=== PATIENT | male | born 1940 | race Caucasian/White ===

== ENCOUNTER 2024-10-03 10:21 | Day surgery (SDC) | payer MEDICARE, BC, SELFPAY ==
--- NOTE | 2024-10-02 00:01 | EKG_ITS ---
[facility] Test Date: 2024-10-02 Pat Name: ANAND GRAFF Department: Room: - Gender: Male [employer]: STUDENT : 1940 Requested By: Michelle Samaniego Order Number: [id number] Reading MD: Michelle Samaniego Measurements Intervals [place] Rate: 66 P: 9 DE: 179 QRS: -5 QRSD: 109 T: 9 QT: 382 QTc: 403 Interpretive Statements SINUS RHYTHM Compared to ECG 12/18/2021 09:07:46 Sinus bradycardia no longer present T-wave abnormality no longer present Possible ischemia no longer present /store/S0/[id number]/ecg/[id number].pdf
[2024-10-02 10:40] LABS: Basophils % (Auto) 0 % (0-2.5); Eosinophils # (Auto) 0.1 Thou/mm3 (0.0-0.5); Eosinophils % (Auto) 1 % (0-10); Hematocrit 40.1 % (41.0-53.0); Hemoglobin 13.1 g/dL (13.5-16.0); Immature Granulocytes % (Auto) 0 % (0-0); Immature Granulocytes Auto 0.02 Thou/mm3 (0.00-0.00); Lymphocytes # (Auto) 2.5 Thou/mm3 (1.0-4.8); Lymphocytes % (Auto) 26 % (10-50); Mean Corpuscular HGB Conc 32.7 g/dl (31.0-37.0); Mean Corpuscular Hemoglobin 30.5 pg (25.0-35.0); Mean Corpuscular Volume 93 fL (80-100); Monocytes # (Auto) 0.9 Thou/mm3 (0.0-0.8); Monocytes % (Auto) 9 % (0-12); Neutrophils # (Auto) 6.2 Thou/mm3 (1.8-7.7); Neutrophils % (Auto) 63 % (37-80); Nucleated Red Blood Cell % 0 /100 WBC (0); Platelet Count 209 Thou/mm3 (140-440); RDW Standard Deviation 48.2 fL (35.1-43.9); White Blood Count 9.9 Thou/mm3 (3.8-10.6)
[2024-10-02 10:55] LABS: Anion Gap 6 (7-16); BUN/Creatinine Ratio 16 Ratio (12-20); Blood Urea Nitrogen 18 mg/dL (9-23); Carbon Dioxide 29.7 mMol/L (20.0-31.0); Chloride 103 mMol/L (98-107); Creatinine (Component) 1.1 mg/dL (0.6-1.3); Glucose 96 mg/dL (74-106); Osmolality,Calculated 279 (275-295); Potassium 4.6 mMol/L (3.4-5.1); Sodium 139 mMol/L (136-145); eGFR > 60 See Note
[2024-10-02 11:19] LABS: Partial Thromboplastin Time 29.7 Seconds (22.0-36.0); Prothrombin Time 11.4 Seconds (9.0-12.2)
[2024-10-02 16:15] VITALS: BMI 27.2
[2024-10-03] VITALS (10 sets, daily range): BP systolic 112–159; BP diastolic 56–82; PULSE 60–77; RESP 9–16; TEMP 36.4–36.6; O2SAT 97–99; BMI 29.2
--- NOTE | 2024-10-03 13:42 | PC.NURSE ---
1303 patient awake, alert, breathing unlabored, s/p LHC , TR band to right wrist, no bleeding or hematoma noted, report received from Mami WATTS. 1330 2ml air removed from TR band, no bleeding or hematoma noted. 1343 Report given to Mami WATTS
--- NOTE | 2024-10-03 15:00 | ESOP_ITS ---
RE: AASHISH CALDERON : 1940 DATE OF OPERATION: 10/03/2024 PROCEDURE PERFORMED: 1. Diagnostic left heart cardiac catheterization, selective coronary angiogram, left ventricular angiogram, CPT code 12102. 2. Conscious sedation for 30-minute duration. 3. Ultrasound guided access of the right radial artery. DIAGNOSES: Coronary artery disease, abnormal stress test, previous stent placed. HISTORY AND INDICATIONS: Mr. Aashish Calderon is an 84-year-old male with known CAD, stent placement of the circumflex artery about 20 years ago. He has recurrent shortness of breath and chest pressure. Cardiac stress test and nuclear scan was abnormal. Coronary angiogram was recommended. The patient is a candidate for intervention of PCI. DESCRIPTION OF PROCEDURE: The patient brought to cardiac catheterization laboratory. He was given 2 mg of Versed and 50 mcg of fentanyl for conscious sedation. Using ultrasound guidance, right radial artery was cannulated via micropuncture technique and a 6-[place] Glidesheath was introduced. Radial cocktail was given. Selective right and left heart catheterization, LV angiogram performed by a 5-Mac[place] TIG-4 diagnostic catheter. FR4 diagnostic catheter was performed for right coronary angiogram. The patient tolerated the procedure with no complications. Cardiac catheterization showed following findings HEMODYNAMICS: Left ventricular pressure 136/6. Aortic pressure 136/78. No gradient across the aortic valve. Left ventricular angiogram showed normal left ventricular wall motion. Ejection fraction 65%. Coronary angiogram showed following findings: The right coronary artery is large and codominant, appears normal. Left coronary system: Left main coronary artery is normal. Left anterior descending artery appears normal. Left circumflex artery showed a stent in the mid segment widely patent, gives off PL branches and co-dominant. SUMMARY OF FINDINGS AND SUGGESTIONS: 1. Widely patent stent in mid left circumflex artery. 2. Normal nonobstructive LAD and septal right coronary arteries, nonobstructive epicardial coronary artery . 3. Normal left ventricular function. RECOMMENDATIONS: The patient was reassured of the absence of significant obstructive coronary artery disease, widely patent stent and prognosis is excellent. Recommended to continue maximum medical management. DT: 13:31:30 TT: 14:55:00 Ref: [id number] - TID: [id number] [facility]
== END 2024-10-03 15:30 | disposition home or self-care (01) ==
PROVIDERS: PCP Family Medicine; Referring Provider Internal Medicine Cardiovascular Disease; Visit Provider Internal Medicine Cardiovascular Disease
PROC: (CPT 93458; principal; 2024-10-03 12:30)
DX: I25.118 Atherosclerotic heart disease of native coronary artery with other forms of angina pectoris (principal); Z95.5 Presence of coronary angioplasty implant and graft; I10 Essential (primary) hypertension; E78.00 Pure hypercholesterolemia, unspecified; E78.2 Mixed hyperlipidemia; Z01.810 Encounter for preprocedural cardiovascular examination
CPT/HCPCS: 93458; 36415; 80048; 85025; 85610; 85730; 93005; 99152; A4649; C1887; C1894; J0171; J0461; J1643; J2250; J2310; J2371; J3010; J3490; Q9967; A9270; J1644; J2305

== ENCOUNTER → 2025-01-16 | Outpatient (CLI) | payer MEDICARE, BC, SELFPAY ==
--- NOTE | 2025-01-16 | XR_ITS ---
Examination: Shoulder,left, 3 views Technique: Shoulder AP internal rotation, AP external rotation, Y view shoulder, 3 views Exam date and time :January 16, 2025 1248 hours INDICATIONS: Left shoulder pain beginning 2 months ago. FINDINGS: Moderate to advanced osteoarthritis glenohumeral joint No fracture or shoulder dislocation Moderate calcific tendinitis IMPRESSION: Moderate to advanced osteoarthritis glenohumeral joint Moderate calcific tendinitis
[2025-01-16 14:24] LABS: Basophils % (Auto) 0 % (0-2.5); Eosinophils # (Auto) 0.2 Thou/mm3 (0.0-0.5); Eosinophils % (Auto) 3 % (0-10); Hematocrit 40.8 % (41.0-53.0); Hemoglobin 13.7 g/dL (13.5-16.0); Immature Granulocytes % (Auto) 0 % (0-0); Immature Granulocytes Auto 0.01 Thou/mm3 (0.00-0.00); Lymphocytes % (Auto) 38 % (10-50); Mean Corpuscular HGB Conc 33.6 g/dl (31.0-37.0); Mean Corpuscular Hemoglobin 30.2 pg (25.0-35.0); Mean Corpuscular Volume 90 fL (80-100); Monocytes # (Auto) 0.7 Thou/mm3 (0.0-0.8); Monocytes % (Auto) 9 % (0-12); Neutrophils # (Auto) 3.9 Thou/mm3 (1.8-7.7); Neutrophils % (Auto) 50 % (37-80); Nucleated Red Blood Cell % 0 /100 WBC (0); Platelet Count 249 Thou/mm3 (140-440); RDW Standard Deviation 44.1 fL (35.1-43.9); Red Blood Count 4.54 Miln/mm3 (4.50-5.90); White Blood Count 7.8 Thou/mm3 (3.8-10.6)
[2025-01-16 14:38] LABS: Alanine Aminotransferase 13 U/L (10-49); Albumin, Serum 4.3 gm/dL (3.4-4.8); Albumin/Globulin Ratio 1.7 (1.2-2.2); Alkaline Phosphatase 93 U/L (46-116); Anion Gap 8 (7-16); Aspartate Amino Transferase 22 U/L (0-34); BUN/Creatinine Ratio 18 Ratio (12-20); Bilirubin,Total 0.9 mg/dL (0.3-1.2); Blood Urea Nitrogen 22 mg/dL (9-23); Calcium 9.9 mg/dL (8.3-10.6); Calcium (Corrected) 9.9 mg/dL (8.5-10.1); Carbon Dioxide 28.1 mMol/L (20.0-31.0); Chloride 104 mMol/L (98-107); Cholesterol 139 mg/dL (132-200); Creatinine (Component) 1.2 mg/dL (0.6-1.3); Globulin 2.6 gm/dL (2.3-3.5); Glucose 100 mg/dL (74-106); HDL Cholesterol 47 mg/dL (40-60); LDL Cholesterol,Calculated 75 mg/dL (0-130); Osmolality,Calculated 282 (275-295); Potassium 4.2 mMol/L (3.4-5.1); Sodium 140 mMol/L (136-145); Total Protein 6.9 gm/dL (5.7-8.2); Triglycerides 85 mg/dL (30-150); eGFR > 60 See Note
== END | disposition home or self-care (01) ==
LOC: CDIM 11:35 → COPL 13:00
PROVIDERS: PCP Family Medicine; Referring Provider Family Medicine; Visit Provider Family Medicine
DX: M19.012 Primary osteoarthritis, left shoulder (principal); M75.32 Calcific tendinitis of left shoulder; I10 Essential (primary) hypertension; N39.490 Overflow incontinence; K21.9 Gastro-esophageal reflux disease without esophagitis; R79.9 Abnormal finding of blood chemistry, unspecified
CPT/HCPCS: 36415; 73030; 80053; 80061; 85025

== ENCOUNTER → 2025-01-17 | Outpatient (CLI) | payer MEDICARE, BC, SELFPAY ==
[2025-01-21 07:06] LABS: Fecal Globin Result NOT DETECTED (NOT DETECTED)
== END | disposition home or self-care (01) ==
LOC: SLDO 12:02
PROVIDERS: PCP Family Medicine; Referring Provider Family Medicine; Visit Provider Family Medicine
DX: Z12.11 Encounter for screening for malignant neoplasm of colon (principal); R79.9 Abnormal finding of blood chemistry, unspecified; K21.9 Gastro-esophageal reflux disease without esophagitis; N39.490 Overflow incontinence; I10 Essential (primary) hypertension
CPT/HCPCS: 82274; G0328

== ENCOUNTER → 2025-08-01 | Outpatient (CLI) | payer MEDICARE, BC, SELFPAY ==
[2025-08-01 17:21] LABS: Basophils # (Auto) 0.0 Thou/mm3 (0.0-0.2); Basophils % (Auto) 1 % (0-2.5); Eosinophils # (Auto) 0.1 Thou/mm3 (0.0-0.5); Eosinophils % (Auto) 2 % (0-10); Hematocrit 40.7 % (41.0-53.0); Hemoglobin 13.1 g/dL (13.5-16.0); Immature Granulocytes Auto 0.02 Thou/mm3 (0.00-0.00); Lymphocytes # (Auto) 2.7 Thou/mm3 (1.0-4.8); Lymphocytes % (Auto) 33 % (10-50); Mean Corpuscular HGB Conc 32.2 g/dl (31.0-37.0); Mean Corpuscular Hemoglobin 30.8 pg (25.0-35.0); Mean Corpuscular Volume 96 fL (80-100); Monocytes # (Auto) 0.6 Thou/mm3 (0.0-0.8); Monocytes % (Auto) 7 % (0-12); Neutrophils # (Auto) 4.7 Thou/mm3 (1.8-7.7); Neutrophils % (Auto) 57 % (37-80); Nucleated Red Blood Cell # 0.00 Thou/mm3 (0.00-0.00); Nucleated Red Blood Cell % 0 /100 WBC (0); Platelet Count 219 Thou/mm3 (140-440); RDW Standard Deviation 49.4 fL (35.1-43.9); Red Blood Count 4.25 Miln/mm3 (4.50-5.90); White Blood Count 8.2 Thou/mm3 (3.8-10.6)
[2025-08-01 17:33] LABS: Prostate Specific Antigen 1.43 ng/mL (0-4.00)
[2025-08-01 17:36] LABS: Alanine Aminotransferase 16 U/L (10-49); Albumin, Serum 4.2 gm/dL (3.4-4.8); Albumin/Globulin Ratio 1.8 (1.2-2.2); Alkaline Phosphatase 81 U/L (46-116); Anion Gap 10 (7-16); Aspartate Amino Transferase 15 U/L (0-34); BUN/Creatinine Ratio 15 Ratio (12-20); Bilirubin,Total 0.7 mg/dL (0.3-1.2); Blood Urea Nitrogen 16 mg/dL (9-23); Calcium 9.6 mg/dL (8.3-10.6); Calcium (Corrected) 9.6 mg/dL (8.5-10.1); Carbon Dioxide 27.0 mMol/L (20.0-31.0); Chloride 105 mMol/L (98-107); Creatinine (Component) 1.1 mg/dL (0.6-1.3); Globulin 2.4 gm/dL (2.3-3.5); Glucose 146 mg/dL (74-106); Osmolality,Calculated 287 (275-295); Potassium 4.0 mMol/L (3.4-5.1); Sodium 142 mMol/L (136-145); Total Protein 6.6 gm/dL (5.7-8.2); eGFR > 60 See Note
== END | disposition home or self-care (01) ==
LOC: COPL 14:57
PROVIDERS: PCP Family Medicine; Referring Provider Family Medicine; Visit Provider Family Medicine
DX: R60.0 Localized edema (principal); M25.512 Pain in left shoulder; K21.9 Gastro-esophageal reflux disease without esophagitis; R79.9 Abnormal finding of blood chemistry, unspecified
CPT/HCPCS: 36415; 80053; 84153; 85025